=== PATIENT | female | born 1990 | race African-American/Black ===

== ENCOUNTER 2016-12-23 10:49 | Emergency (ER) | payer MEDICAID, OTHER ==
[~2016-12-23] VITALS: Ht 165.1 cm; Wt 57.3 kg
[~2016-12-23 10:49] MED LIST: PREN-88 PO
[2016-12-23 10:54] VITALS: BP 97/70
[2016-12-23] MEDS ORDERED: VISCOUS LIDOCAINE 2% 15 ML UDC MM PRN (14:00)
== END 2016-12-23 14:50 | disposition home or self-care (01) ==
LOC: ER 12:06
DX: J06.9 Acute upper respiratory infection, unspecified (principal); F17.210 Nicotine dependence, cigarettes, uncomplicated; F12.10 Cannabis abuse, uncomplicated; Z87.828 Personal history of other (healed) physical injury and trauma
CPT/HCPCS: 99283

== ENCOUNTER 2025-03-13 11:50 | Emergency (ER) | payer MEDICAID, OTHER ==
[~2025-03-13] VITALS: Ht 165.1 cm; Wt 54.0 kg
[2025-03-13 12:02] VITALS: O2SAT 100
[2025-03-13] MEDS: ACETAMINOPHEN 325MG TABLET PO ONE (12:58)
[2025-03-13] MEDS ORDERED: IBUP-2028 MT (13:56)
[2025-03-13 14:15] VITALS: BP 106/79; PULSE 69; RESP 16; TEMP 36.9; O2SAT 100
== END 2025-03-13 14:16 | disposition home or self-care (01) ==
LOC: ER 11:50
DX: M25.561 Pain in right knee (principal); M25.572 Pain in left ankle and joints of left foot; R26.9 Unspecified abnormalities of gait and mobility; S83.8X2A Sprain of other specified parts of left knee, initial encounter; F12.90 Cannabis use, unspecified, uncomplicated; X58.XXXA Exposure to other specified factors, initial encounter; Y93.89 Activity, other specified; Y92.89 Other specified places as the place of occurrence of the external cause; Y99.8 Other external cause status
CPT/HCPCS: 99284; 73562; 73610; A6449